=== PATIENT | male | born 1990 ===

== ENCOUNTER 2025-02-28 01:30 | Emergency (ER) | payer BC ==
[2025-02-28] MEDS: Lidocaine 1% with EPINEPHrine 1:100,000 20 ML MDV INJECT ONE (02:00)
[2025-02-28] MEDS: Bacitracin Oint 1 GM U/D Packet TOP ONE (02:52)
== END 2025-02-28 03:02 | disposition home or self-care (01) ==
LOC: DL.ED 01:30
DX: S61.411A Laceration without foreign body of right hand, initial encounter (principal); W45.8XXA Other foreign body or object entering through skin, initial encounter
CPT/HCPCS: 12002; 99282; 99283; A9270; J2004